=== PATIENT | female | born 1990 | race Caucasian/White ===

== ENCOUNTER 2016-12-02 11:42 | Outpatient (CLI) | payer OTHER ==
[~2016-12-02] VITALS: Ht 165.1 cm; Wt 64.9 kg
[~2016-12-02 11:42] MED LIST: ASCO500T6 PO; ETHI1TAB26 PO; ONDA8TAB9 PO; PNV1TABL9 PO
[2016-12-02 11:51] VITALS: BP 121/80
== END 2016-12-02 12:02 | disposition home or self-care (01) ==
LOC: PREOP 11:42
PROVIDERS: ATTEND Obstetrics & Gynecology
DX: Z01.818 Encounter for other preprocedural examination (principal); N85.00 Endometrial hyperplasia, unspecified; N93.9 Abnormal uterine and vaginal bleeding, unspecified
CPT/HCPCS: 87081

== ENCOUNTER 2016-12-09 11:15 | Day surgery (SDC) | payer OTHER ==
[~2016-12-09] VITALS: Ht 165.1 cm; Wt 64.9 kg
[~2016-12-09 11:15] MED LIST changes: +LACTATED RINGERS 1,000 ML IV PRN; +NS (IVPB) 50 ML ONE; +ceFAZolin 1,000 MG (ANCEF) VIAL ONE
[2016-12-09] MEDS ORDERED: MIDAZOLAM 2 MG/2 ML (VERSED) VIAL ONE (11:26)
[2016-12-09] MEDS ORDERED: LIDOCAINE PF 2% 5 ML (XYLOCAINE) VIAL ONE (11:26)
[2016-12-09] MEDS ORDERED: fentaNYL INJECTION 100 MCG/2 ML AMP ONE (11:26)
[2016-12-09] MEDS ORDERED: proPOfol 200 MG/20 ML (DIPRIVAN) VIAL IV ONE (11:26)
[2016-12-09] MEDS ORDERED: LACTATED RINGERS 1,000 ML IV ONE (11:26)
[2016-12-09 11:30] VITALS: BP 111/77
[2016-12-09] MEDS ORDERED: ceFAZolin 1 GM/NS 50 ML IVPB IV ONE ×2 (11:30)
[2016-12-09] MEDS ORDERED: CATHETER FLUSH 10 ML SYR IV PRN (11:30)
[2016-12-09] MEDS ORDERED: DEXAMETHASONE 10 MG/ML (DECADRON) 1 ML VIAL ONE (12:07)
[2016-12-09] MEDS ORDERED: ONDANSETRON 4 MG/2 ML (SDV) Z0FRAN ONE (12:07)
[2016-12-09] MEDS ORDERED: SEVOFLURANE (ULTANE) 15 ML INHAL SOLN ONE (12:34)
--- NOTE | 2016-12-09 12:43 | Progress Note-Pre Operative ---
Pre-Operative Progress Note H&P Reviewed The H&P was reviewed, patient examined and no changes noted. Date Seen by Provider: Dec 09, 2016 Time Seen by Provider: 11:50 Date H&P Reviewed: Dec 09, 2016 Time H&P Reviewed: 11:44 Pre-Operative Diagnosis: metrorrhagia, thickened endometrium ARABELLA MORALES DO Dec 09, 2016 12:43
--- NOTE | 2016-12-09 12:45 | Discharge Inst-Women's Service ---
Discharge Inst-Women's Serv Depart Medication/Instructions New, Converted or Re-Newed RX: RX on Chart Instructions expect light bleeding for up to two weeks (until next menses) Final Diagnosis thickened endometrium, breakthrough bleeding endometrial polyp Consults/Follow Up Additional Follow Up: Yes (1-[address] Morales) Activity Activity: Activity as Tolerated Driving Instructions: No Driving for 24 Hours NO SMOKING: NO SMOKING Nothing Inside Vagina: No Douching, No [place], No Tampons Diet Discharge Diet: No Restrictions Symptoms to Report to : Bleeding Excessive, Pain Increased, Fever Over 101 Degrees F, Vaginal Bleeding Increase, Cramps in Feet or Legs, Vaginal Discharge Foul For Any Problems or Questions: Contact Your Physician ARABELLA MORALES DO Dec 09, 2016 12:45
[2016-12-09] MEDS ORDERED: IBUP-1773 PO (12:47)
[2016-12-09] MEDS ORDERED: ACET-789 PO (12:48)
[2016-12-09] MEDS ORDERED: morphine INJ 10 MG/ML 1ML (SYR OR VIAL) ONE (12:58)
[2016-12-09] MEDS ORDERED: ONDANSETRON 4 MG/2 ML (SDV) Z0FRAN IVP PRN (13:00)
[2016-12-09] MEDS: morphine INJ 10 MG/ML 1ML (SYR OR VIAL) IVP PRN ×2 (13:03→13:10)
[2016-12-09 13:45] VITALS: BP 98/66
[2016-12-09 14:15] VITALS: BP 101/60
[2016-12-09 14:45] VITALS: BP 103/49
[2016-12-09] MEDS ORDERED: diphenhydrAMINE 50 MG/ML INJ (BENADRYL) ONE (14:49)
[2016-12-09] MEDS ORDERED: FAMOTIDINE 20MG/2ML IV (PEPCID) ONE (14:57)
[2016-12-09] MEDS ORDERED: diphenhydrAMINE 50 MG/ML INJ (BENADRYL) IVP ONE (15:00)
[2016-12-09] MEDS ORDERED: FAMOTIDINE 20MG/2ML IV (PEPCID) IVP ONE (15:00)
[2016-12-09 16:00] VITALS: BP 111/53
--- NOTE | 2017-01-04 14:20 | Operative Report ---
Operative Report Date of Procedure/Surgery Dec 09, 2016 Surgeon (s) ARABELLA MORALES DO Home Demonstration Agent (s): NA Post-Operative Diagnosis thickened endometrium, polypoid tissue breakthrough bleeidng Procedure Performed hysterooscopy dilation and cureettage Description of Procedure Anesthesia Type: Conscious Sedation Estimated blood loss (mL): minimal Specimen(s) collected/removed endometrial curettings. Description of the Procedure This procedure was dictated day of procedure and an additional time but was not saved. this is a duplicate with informed consent the patient was taken to the operating room where general anesthesia was found to be adequate. She was prepped and draped in the usual sterile fashion in the dorsolithotomy position. The bladder was drained of clear urine. A speculum was placed in the vagina and the cervix was grasped with a tenaculum. The cervix appeared normal. It was gently dilated. I then inserted the hysteroscope and did a hysteroscopy. The above mentioned findings were described. I then removed the scope and did a gentle curette and this was sent for pathology. The curette was continued until a gritty texture was heard. I then removed the instruments. The patient tolerated the procedure well and was wakened and taken to the recovery room in stable condition. Findings of the Procedure fluffy proliferative endometrium, polypoid type tissue Allergies and Home Medications Allergies Coded Allergies: Penicillins (Verified Allergy, Unknown, 12/02/16) Home Medications Acetaminophen with Codeine 1 Each Tablet, 1 EACH PO Q4H, #12 Prescribed by: ARABELLA MORALES on 12/09/16 1248 Ascorbic Acid 500 Mg Tablet, 500 MG PO DAILY, (Reported) Ethinyl Estradiol/Drospirenone 1 Each Tablet, 1 EACH PO UD, (Reported) Ibuprofen 600 Mg Tablet, 600 MG PO Q6H, #60 Ref 0 Prescribed by: ARABELLA MORALES on 12/09/16 1247 ARABELLA MORALES DO Jan 04, 2017 2:20 pm
== END 2016-12-09 16:00 | disposition home or self-care (01) ==
LOC: SDC 11:15
PROVIDERS: ATTEND Obstetrics & Gynecology
DX: N92.1 Excessive and frequent menstruation with irregular cycle (principal); N85.00 Endometrial hyperplasia, unspecified; F43.10 Post-traumatic stress disorder, unspecified; F41.9 Anxiety disorder, unspecified
CPT/HCPCS: 84703; 88305